=== PATIENT | male | born 1990 | race Caucasian/White ===

== ENCOUNTER 2017-05-06 17:19 | Emergency (ER) | payer BC, OTHER ==
[2017-05-06 18:10] LABS: Mean Cell Volume 87.2 fl (78-100); Mean Corpuscular Hemoglobin 29.2 pg (26-32); Mean Platelet Volume 9.7 fl (6-9.5); Platelet Count 255 K/mm3 (150-450); Red Blood Count 4.83 M/mm3 (4.1-5.6); Red Cell Distribution Width 12.6 % (11.5-14.0); White Blood Count 21.8 K/mm3 (4.0-10.5)
[2017-05-06] MEDS ORDERED: Sodium Chloride 0.9% 1000 ML 1,000 ML IV STA ×2 (18:12→19:18)
[2017-05-06] MEDS ORDERED: Sodium Chloride 0.9% 1000 ML 1,000 ML ONE ×2 (18:13→19:26)
[2017-05-06 18:20] LABS: ALBUMIN 4.3 g/dL (3.4-5.0); ALKALINE PHOSPHATASE 92 U/L (46-116); ANION GAP 12.8 MEQ/L (5-15); BLOOD UREA NITROGEN 12 mg/dL (9-20); CHLORIDE 104 mEq/L (98-107); Carbon Dioxide 28.7 mEq/L (21-32); Glucose 119 MG/DL (70-110); Potassium 4.1 mEq/L (3.5-5.1); SGOT/AST 23 U/L (15-37); SGPT/ALT 26 U/L (12-78); SODIUM 141 mEq/L (136-145); Total Protein 8.2 gm/dL (6.4-8.2)
[2017-05-06 18:26] VITALS: O2SAT 99
[2017-05-06 18:48] LABS: Bacteria FEW /HPF (NEGATIVE); COMPLETE URINE MICROSCOPIC? YES; Collection Type CLEAN CATCH; Epithelial Cells FEW /HPF (FEW); Mucus MODERATE /HPF (NEGATIVE); Ph 6.5 (5-6)
[2017-05-06] MEDS ORDERED: Unasyn 3GM / NaCl 100ML 3 GM/100 ML IVPB IV STA (19:18)
[2017-05-06] MEDS ORDERED: Unasyn 3GM / NaCl 100ML 3 GM/100 ML IVPB ONE (19:27)
[2017-05-06 19:43] LABS: Eosinophil 1 % (0.00-3.0); Total Cells Counted 100
[2017-05-06 19:44] LABS: Platelet Estimate NORMAL (NORMAL)
--- NOTE | 2017-05-06 20:12 | ERPHSYRPT ---
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 states father found him on the floor "passed out". mother states pt was very pale sweaty and cool to touch and slow to respond Triage Nursing Assessment: PT arrives pale warm, dry following episode of near syncope. PT a@ox3 at this time resp easy and non labored pt states full recolection of episode. pt reports he had left [place] pulled this am under local without difficulty Physician History: CC: passed out Hx: 26 y/o patinet of Dr Weaver and Dr Russell dentist. He had tooth extraction earlier today. Has not yet filled the abtx Rx. He was at home. He went to [facility] and started to vomit. [place] ill so laid down on the floor. He apparently passed out on the floor. Mother found him pale, diaphoretic, and sweating. No seizure noted. He had prior syncope spells as a child associated with headaches. No fall or injury. No headache. No N/T/W. No fever or chills. Feeling better here after some fluids. No chest pain. ALL: None Meds: Motrin. Has not yet filled abtx. Social: Works in factory. Nonsmoker. ILL: No DM or heart disease Surg: Hernia Timing/Duration: today Severity: severe Allergies/Adverse Reactions: No Known Drug Allergies Allergy (Unverified 04/26/16 09:43) Hx Tetanus, Diphtheria Vaccination/Date Given: No Hx Influenza Vaccination/Date Given: No Hx Pneumococcal Vaccination/Date Given: No - Review of Systems Constitutional: No Fever, No Chills Eyes: No Symptoms Ears, Nose, & Throat: Mouth Pain Respiratory: No Cough Cardiac: Syncope, No Chest Pain Abdominal/Gastrointestinal: Nausea, Vomiting Skin: No Rash Neurological: No Focal Weakness, No Headache, No Parasthesia All Other Systems: Reviewed and Negative - Past Medical History Pertinent Past Medical History: No Neurological History: No Pertinent History ENT History: No Pertinent History Cardiac History: No Pertinent History Respiratory History: No Pertinent History Endocrine Medical History: No Pertinent History Musculoskeletal History: No Pertinent History GI Medical History: Hernia History: No Pertinent History Psycho-Social History: No Pertinent History Male Reproductive Disorders: No Pertinent History - Past Surgical History Past Surgical History: Yes Neuro Surgical History: No Pertinent History Cardiac: No Pertinent History Respiratory: No Pertinent History Gastrointestinal: Hernia Repair Genitourinary: No Pertinent History Musculoskeletal: No Pertinent History Male Surgical History: No Pertinent History Other Surgical History: umbilical hernia - Social History Smoking Status: Never smoker Exposure to second hand smoke: No Drug Use: none Patient Lives Alone: No - Nursing Vital Signs Nursing Vital Signs: Initial Vital Signs Temperature 99.1 F Temperature Source Oral Pulse Rate 72 Respiratory Rate 16 Blood Pressure [Right Arm] 122/66 Blood Pressure [Left Arm] 122/66 Pain Intensity 8 - Physical Exam General Appearance: alert Eye Exam: PERRL/EOMI Ears, Nose, Throat Exam: normal ENT inspection, moist mucous membranes, other ( extraction site appears well, no bleeding, no significant swelling, no trismus, no facial cellulitis) Neck Exam: normal inspection, non-tender, supple Respiratory Exam: normal breath sounds, lungs clear Cardiovascular Exam: regular rate/rhythm, No murmur Gastrointestinal/Abdomen Exam: soft, No tenderness, No distention Back Exam: normal inspection, normal range of motion Extremity Exam: normal inspection, normal range of motion Neurologic Exam: alert, oriented x 3, cooperative, artificial flower maker II-XII nml as tested, nml station & gait, sensation nml, No motor deficits Skin Exam: warm, dry, No rash SpO2 Interpretation: normal SpO2: 99 Oxygen Delivery: Room Air - Course Nursing assessment & vital signs reviewed: Yes EKG Interpreted by Me: RATE (76), Sinus Rhythm, NORMAL INTERVALS (QTc 411; QRS 96), Non-specific ST Changes, Other (RVH) - Radiology Exams cxr X-ray Interpretation: Reviewed by me (normal chest) Ordered Tests: Active Orders 24 hr Category Date Time Status Clean Catch Urine Specimen STAT Care 05/06/17 18:04 Active EKG-ER Only STAT Care 05/06/17 18:05 Active IV Insertion STAT Care 05/06/17 18:05 Active Orthostatic Vital Signs STAT Care 05/06/17 20:05 Active CHEST 2 VIEWS (PA AND LAT) Stat Exams 05/06/17 19:18 Taken BLOOD CULTURE Stat Lab 05/06/17 19:29 Received CBC W DIFF Stat Lab 05/06/17 18:00 Completed CMP Stat Lab 05/06/17 18:00 Completed Lactic Acid Stat Lab 05/06/17 19:30 Completed Manual Differential NC Stat Lab 05/06/17 18:00 Completed UA W/ MICROSCOPIC Stat Lab 05/06/17 18:00 Completed Urine Triage Profile Stat Lab 05/06/17 18:00 Completed Medication Summary Generic Name Dose Route Start Last Admin Trade Name Freq PRN Reason Stop Dose Admin Sodium Chloride 1,000 mls @ 999 mls/hr 05/06/17 19:18 05/06/17 19:29 Sodium Chloride 0.9% 1000 Ml IV 05/06/17 20:18 999 mls/hr .Q1H1M STA Administration Discontinued Medications Generic Name Dose Route Start Last Admin Trade Name Freq PRN Reason Stop Dose Admin Sodium Chloride 1,000 mls @ 999 mls/hr 05/06/17 18:12 05/06/17 18:14 Sodium Chloride 0.9% 1000 Ml IV 05/06/17 19:12 999 mls/hr .Q1H1M STA Administration Sodium Chloride Confirm 05/06/17 18:13 Sodium Chloride 0.9% 1000 Ml Administered 05/06/17 18:14 Dose 1,000 mls @ ud .ROUTE .STK-MED ONE Ampicillin Sodium/Sulbactam Sodium 3 gm in 100 mls @ 200 mls/hr 05/06/17 19: 18 05/06/17 19:44 Unasyn 3gm / Nacl 100ml IV 05/06/17 19:47 200 mls/hr STAT STA Administration Sodium Chloride Confirm 05/06/17 19:26 Sodium Chloride 0.9% 1000 Ml Administered 05/06/17 19:27 Dose 1,000 mls @ ud .ROUTE .STK-MED ONE Ampicillin Sodium/Sulbactam Sodium Confirm 05/06/17 19:27 Unasyn 3gm / Nacl 100ml Administered 05/06/17 19:28 Dose 3 gm in 100 mls @ ud .ROUTE .STK-MED ONE Lab/Rad Data: Laboratory Result Diagrams 05/06/17 18:00 05/06/17 18:00 Laboratory Results 05/06/17 05/06/17 05/06/17 Range/Units 19:30 18:00 18:00 WBC (4.0-10.5) K/mm3 RBC (4.1-5.6) M/mm3 Hgb (12.5-18.0) gm/dl Hct (42-50) % MCV (78-100) fl MCH (26-32) pg MCHC (32-36) g/dl RDW (11.5-14.0) % Plt Count (150-450) K/mm3 MPV (6-9.5) fl Segmented Neutrophils (36.-66.) % Lymphocytes (Manual) (24-44) % Monocytes (Manual) (0.0-12.0) % Eosinophils (Manual) (0.00-3.0) % Differential Comment Platelet Estimate (NORMAL) Sodium 141 (136-145) mEq/L Potassium 4.1 (3.5-5.1) mEq/L Chloride 104 (98-107) mEq/L Carbon Dioxide 28.7 (21-32) mEq/L Anion Gap 12.8 (5-15) MEQ/L BUN 12 (9-20) mg/dL Creatinine 1.20 (0.55-1.30) mg/dl Estimated GFR > 60 ML/MIN Glucose 119 H (70-110) MG/DL Lactic Acid 0.8 (0.4-2.0) Calcium 9.3 (8.5-10.1) mg/dL Total Bilirubin 1.70 H (0.2-1.0) mg/dL AST 23 (15-37) U/L ALT 26 (12-78) U/L Alkaline Phosphatase 92 (46-116) U/L Serum Total Protein 8.2 (6.4-8.2) gm/dL Albumin 4.3 (3.4-5.0) g/dL Ur Collection Type Urine Color (YELLOW) Urine Appearance (CLEAR) Urine pH (5-6) Ur Specific [place] (1.005-1.025) Urine Protein (Negative) Urine Glucose (UA) (NEGATIVE) mg/dL Urine Ketones (NEGATIVE) Urine Nitrite (NEGATIVE) Urine Bilirubin (NEGATIVE) Urine Urobilinogen (0-1) mg/dL Urine WBC (Auto) (NEGATIVE) Urine RBC (Auto) (0-5) Luiz/ul Urine Microscopic RBC (0-2) /HPF Urine Microscopic WBC (0-5) /HPF Ur Epithelial Cells (FEW) /HPF Urine Bacteria (NEGATIVE) /HPF Urine Mucus (NEGATIVE) /HPF Urine Opiates Level NEG. (NEGATIVE) Ur Methadone NEG. (NEGATIVE) Urine Barbiturates NEG. (NEGATIVE) Ur Phencyclidine (PCP) NEG. (NEGATIVE) Urine Amphetamine NEG. (NEGATIVE) U Benzodiazepine Level NEG. (NEGATIVE) Urine Cocaine NEG. (NEGATIVE) Urine Marijuana (THC) NEG. (NEGATIVE) Specimen Received 05/06/17 05/06/17 Range/Units 18:00 18:00 WBC 21.8 H (4.0-10.5) K/mm3 RBC 4.83 (4.1-5.6) M/mm3 Hgb 14.1 (12.5-18.0) gm/dl Hct 42.1 (42-50) % MCV 87.2 (78-100) fl MCH 29.2 (26-32) pg MCHC 33.5 (32-36) g/dl RDW 12.6 (11.5-14.0) % Plt Count 255 (150-450) K/mm3 MPV 9.7 H (6-9.5) fl Segmented Neutrophils 77 H (36.-66.) % Lymphocytes (Manual) 12 L (24-44) % Monocytes (Manual) 10 (0.0-12.0) % Eosinophils (Manual) 1 (0.00-3.0) % Differential Comment NORMAL Platelet Estimate NORMAL (NORMAL) Sodium (136-145) mEq/L Potassium (3.5-5.1) mEq/L Chloride (98-107) mEq/L Carbon Dioxide (21-32) mEq/L Anion Gap (5-15) MEQ/L BUN (9-20) mg/dL Creatinine (0.55-1.30) mg/dl Estimated GFR ML/MIN Glucose (70-110) MG/DL Lactic Acid (0.4-2.0) Calcium (8.5-10.1) mg/dL Total Bilirubin (0.2-1.0) mg/dL AST (15-37) U/L ALT (12-78) U/L Alkaline Phosphatase (46-116) U/L Serum Total Protein (6.4-8.2) gm/dL Albumin (3.4-5.0) g/dL Ur Collection Type CLEAN CATCH Urine Color YELLOW (YELLOW) Urine Appearance CLEAR (CLEAR) Urine pH 6.5 (5-6) Ur Specific [place] 1.025 (1.005-1.025) Urine Protein 30 (Negative) Urine Glucose (UA) NEGATIVE (NEGATIVE) mg/dL Urine Ketones MODERATE-40 (NEGATIVE) Urine Nitrite NEGATIVE (NEGATIVE) Urine Bilirubin NEGATIVE (NEGATIVE) Urine Urobilinogen 0.2 (0-1) mg/dL Urine WBC (Auto) NEGATIVE (NEGATIVE) Urine RBC (Auto) TRACE-INTACT (0-5) Luiz/ul Urine Microscopic RBC 2-5 (0-2) /HPF Urine Microscopic WBC 5-10 (0-5) /HPF Ur Epithelial Cells FEW (FEW) /HPF Urine Bacteria FEW (NEGATIVE) /HPF Urine Mucus MODERATE (NEGATIVE) /HPF Urine Opiates Level (NEGATIVE) Ur Methadone (NEGATIVE) Urine Barbiturates (NEGATIVE) Ur Phencyclidine (PCP) (NEGATIVE) Urine Amphetamine (NEGATIVE) U Benzodiazepine Level (NEGATIVE) Urine Cocaine (NEGATIVE) Urine Marijuana (THC) (NEGATIVE) Specimen Received 05/06/171814 - Progress Progress Note: 05/06/17 20:15 Pt feeling some better after IVF. WBC up- likely from vomiting, could be from infection. Cultures sent and unasyn given. Advised to fill abtx Rx. Will release and advised abtx, follow up with Dr Weaver as may need echocardiogram before exercise. 05/06/17 20:22 Pt ambulated in hallway. Normal toe walk, heel walk, tandem walk. Feels better. Instr given. Pt and family comfortable with discharge. Counseled pt/family regarding: lab results, diagnosis, need for follow-up, rad results - Departure Time of Disposition: 20:23 Departure Disposition: Home Clinical Impression: Syncope, post dental extraction, RVH (right ventricular hypertrophy), Leukocytosis Condition: Fair Critical Care Time: No Referrals: BRIDGET WEAVER MD [Primary Care Provider] - Instructions: Fainting Additional Instructions: Rx augmentin for antiobiotic. Rx zofran ODT. No driving or strenuous exercise. Return for problems or concerns. Drink plenty of fluids. Stay with family tonite. Prescriptions: Ondansetron [Zofran Odt] 4 mg PO Q6HPRN PRN #10 tab.rapdis PRN Reason: Nausea/Vomiting Amox Tr/Potass Clav. 875 mg [Augmentin 875-125 Tablet] 875 mg PO BID #20 tablet
[2017-05-06 20:34] VITALS: BP 119/59; PULSE 80
--- NOTE | 2017-05-07 09:09 | XRAY ---
Indication: Syncope. Comparison: May 27, 2008. PA/lateral chest again demonstrates normal heart, lungs, and bony thorax.
== END 2017-05-06 20:35 | disposition home or self-care (01) ==
LOC: ED 17:19
DX: R55 Syncope and collapse (principal); Z98.818 Other dental procedure status; I51.7 Cardiomegaly; D72.829 Elevated white blood cell count, unspecified; R11.2 Nausea with vomiting, unspecified
CPT/HCPCS: 36000; 36415; 71020; 80053; 80307; 81000; 83605; 85025; 87040; 93005; 96360; 96361; 96365; 99284; J0295